=== PATIENT | female | born 1995 | race Caucasian/White ===

== ENCOUNTER 2025-06-26 05:34 | Inpatient (IN) | payer OTHER ==
[2025-06-26] MEDS ORDERED: Nalbuphine 10 MG/1 ML Vial IVPUSH PRN (05:56)
[2025-06-26] MEDS ORDERED: Sodium Chloride 0.9% 10 ML Syringe FLUSH PRN (05:56)
[2025-06-26] MEDS: Lactated Ringers 1,000 ML IV SCH (06:00)
[2025-06-26 06:11] LABS: BASOPHILS ABSOLUTE AUTO 0.0 K/mm3 (0.0-0.2); BASOPHILS PERCENT AUTO 0.4 % (0.0-1.0); EOSINOPHILS ABSOLUTE AUTO 0.1 K/mm3 (0.0-0.4); EOSINOPHILS PERCENT AUTO 0.6 % (0.0-6.0); IMMATURE GRAN ABSOLUTE AUTO 0.22 K/mm3 (0.00-0.05); IMMATURE GRAN PERCENT AUTO 2.0 % (0.0-0.4); LYMPHOCYTES ABSOLUTE AUTO 2.0 K/mm3 (1.0-4.8); LYMPHOCYTES PERCENT AUTO 18.4 % (24.0-44.0); MEAN PLATELET VOLUME 10.8 fl (9.4-12.3); MONOCYTES ABSOLUTE AUTO 0.6 K/mm3 (0.0-0.8); MONOCYTES PERCENT AUTO 5.4 % (0.0-8.0); NEUTROPHILS ABSOLUTE AUTO 7.9 K/mm3 (1.8-7.7); NEUTROPHILS PERCENT AUTO 73.2 % (41.0-71.0); NRBC ABSOLUTE 0.00 (0.00-0.02); NRBC PERCENT 0.0 % (0.0-0.2); PLATELET COUNT,PLT 176 K/mm3 (150-400); RED BLOOD CELL COUNT 4.58 M/mm3 (4.10-5.30); WHITE BLOOD CELL COUNT,WBC 10.80 K/mm3 (3.9-11.3)
[2025-06-26] MEDS ORDERED: diphenhydrAMINE 50 MG/ML SDV IVPUSH PRN (06:28)
[2025-06-26] MEDS: Bupivacaine/fentaNYL/NS 100 ML Bag EPIDUR PRN (06:42)
[2025-06-26] MEDS: ePHEDrine 50 MG/ML SDV IVPUSH PRN (07:54)
[2025-06-26] MEDS: Ondansetron 4 MG/2 ML SDV IVPUSH PRN (08:04)
[2025-06-26] MEDS: Oxytocin/0.9 % Sodium Chloride 30 UNIT/500 ML BAG IV SCH (12:35)
[2025-06-26] MEDS: Benzocaine/Menthol 20%-0.5% Spray 78 GM Cannister TOP PRN (14:19)
[2025-06-26] MEDS: Witch Hazel Medicated Pads 40/Jar TOP PRN (14:19)
[2025-06-26] MEDS: Sodium Chloride 0.9% 10 ML Syringe FLUSH SCH (16:20)
[2025-06-28] MEDS ORDERED: Measles, Mumps & Rubella Vaccine 0.5 ML SDV SUBCUT ONE (09:45)
[2025-06-28] MEDS: Measles, Mumps & Rubella Vaccine 0.5 ML SDV SUBCUT ONE (09:47)
== END 2025-06-28 12:30 | disposition home or self-care (01) | DRG 807 ==
LOC: JD.OBCHECK 05:34 → JD.OB 05:35 → JD.OBCHECK 06:12 → OBSVTOIN 12:35 → JD.OB 13:07
PROVIDERS: ADMIT Obstetrics & Gynecology; ATTEND Obstetrics & Gynecology
PROC: 3E0R3BZ Introduction of Anesthetic Agent into Spinal Canal, Percutaneous Approach (ICD-10-PCS; principal; 2025-06-26)
PROC: 3E0234Z Introduction of Serum, Toxoid and Vaccine into Muscle, Percutaneous Approach (ICD-10-PCS; principal; 2025-06-26)
PROC: 0KQM0ZZ Repair Perineum Muscle, Open Approach (ICD-10-PCS; principal; 2025-06-26)
PROC: 10E0XZZ Delivery of Products of Conception, External Approach (ICD-10-PCS; principal; 2025-06-26)
DX: O70.1 Second degree perineal laceration during delivery (principal); Z37.0 Single live birth; Z3A.39 39 weeks gestation of pregnancy; Z23 Encounter for immunization; Z98.890 Other specified postprocedural states
CPT/HCPCS: 01967; 36415; 51702; 59025; 59409; 84112; 85025; 86592; 86850; 86900; 86901; 90471; 90707; A9270-GY; J2405; J3490; J7120; J7999